=== PATIENT | female | born 1995 | race Caucasian/White ===

== ENCOUNTER 2019-10-06 22:42 | Emergency (ER) | payer SELFPAY ==
--- NOTE | 2019-10-06 22:55 | ER Document Report ---
ED General - General Mode of Arrival: Medic Information source: Patient, Emergency Med Personnel TRAVEL OUTSIDE OF THE [place] IN LAST 30 DAYS: No - HPI Onset: Just prior to arrival Onset/Duration: Sudden Severity: None Pain Level: Denies Associated symptoms: None <CORETTA STEEL JR - Last Filed: 10/07/19 03:55> <CARMEN AVINA - Last Filed: 10/07/19 09:48> <ANDREI GARRETT - Last Filed: 10/08/19 07:33> - General Stated Complaint: POSS OVERDOSE Time Seen by Provider: 10/06/19 22:47 Primary Care Provider: [facility] [Provider Group] - Follow up as needed Notes: 24-year-old female arrives by EMS after she took 8 of her dogs trazodone and drank wine prior to the this ingestion. Patient was evasive as to why she took the medications but reports she has various reasons which include job financial and social problems. 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 Patient is sleepy at this time upon arrival but arousable by calling her name. She denies any homicidal ideation and reports she regretted taking the medications as soon as she had done so and instead of driving herself to the ER she called EMS. (CORETTA STEEL JR) - Related Data Allergies/Adverse Reactions: No Known Allergies Allergy (Unverified 10/07/19 00:05) Past Medical History - General Information source: Patient, Emergency Med Personnel - Social History Frequency of alcohol use: Occasional - Patient drank wine prior to overdose; she reports she works at the [employer] as a sales & service associate. Drug Abuse: None Lives with: Other - "Her pit bull mix dog that takes trazodone for anxiety." <CORETTA STEEL JR - Last Filed: 10/07/19 03:55> - Social History Smoking Status: Unknown if Ever Smoked Family History: Reviewed & Not Pertinent <GERRYANDREI - Last Filed: 10/08/19 07:33> Review of Systems - Review of Systems Constitutional: No symptoms reported EENT: No symptoms reported Cardiovascular: No symptoms reported Respiratory: No symptoms reported Gastrointestinal: No symptoms reported Genitourinary: No symptoms reported Female Genitourinary: No symptoms reported Musculoskeletal: No symptoms reported Skin: No symptoms reported Hematologic/Lymphatic: No symptoms reported Neurological/Psychological: See HPI, Suicidal ideation - Patient reports she took that medication because at the spur the moment she thought this would help her. When asked whether she had suicidal ideation she reports her thoughts have changed immediately after taking the pills. She denies any homicidal ideation. <CORETTA STEEL JR - Last Filed: 10/07/19 03:55> Physical Exam - Vital signs Interpretation: Normal - General General appearance: Other - Sleepy but easily awakened by calling her name. I advised patient if she was being placed on papers and she requested what that meant and I advised that she will be staying here tonight and evaluated tomorrow morning by psychiatric. She shook her head no and I advised her that if she tries to leave he will be dissuaded by police and security. She appeared to understand this. - HEENT Head: Normocephalic Eyes: Normal Conjunctiva: Normal Cornea: Normal Extraocular movements intact: Yes Eyelashes: Normal Pupils: PERRL Mucous membranes: Normal Pharynx: Normal Neck: Normal - Respiratory Respiratory status: No respiratory distress Chest status: Nontender Breath sounds: Normal Chest palpation: Normal - Cardiovascular Rhythm: Regular Heart sounds: Normal auscultation Murmur: No Friction rub: No Sadi's crunch: No - Abdominal Inspection: Normal Distension: No distension Bowel sounds: Normal Tenderness: Nontender Organomegaly: No organomegaly - Back Back: Normal - Extremities General upper extremity: Normal inspection General lower extremity: Normal inspection - Neurological Neuro grossly intact: Yes Cognition: Normal Orientation: AAOx4 [place] Coma Scale Eye Opening: To Voice [place] Coma Scale Verbal: Oriented Daphnie Coma Scale Motor: Obeys Commands [place] Coma Scale Total: 14 Speech: Normal Cranial nerves: Normal Cerebellar coordination: Normal Motor strength normal: LUE, RUE, LLE, RLE - Psychological Associated symptoms: Anxious, Depressed - Skin Skin Temperature: Warm Skin Moisture: Dry <CORETTA STEEL JR - Last Filed: 10/07/19 03:55> - Vital signs Vitals: Resp BP Pulse Ox 20 123/68 97 10/06/19 22:44 10/06/19 22:44 10/06/19 22:44 Course - Laboratory Result Diagrams: 10/06/19 22:50 10/07/19 01:50 <CORETTA STEEL JR - Last Filed: 10/07/19 03:55> - Laboratory Result Diagrams: 10/06/19 22:50 10/07/19 01:50 <CARMEN AVINA - Last Filed: 10/07/19 09:48> - Laboratory Result Diagrams: 10/06/19 22:50 10/07/19 01:50 <ANDREI GARRETT - Last Filed: 10/08/19 07:33> - Vital Signs Vital signs: Temp Pulse Resp BP Pulse Ox 98.2 F 81 16 131/77 H 99 10/07/19 12:11 10/07/19 12:11 10/07/19 12:11 10/07/19 12:11 10/07/19 12:11 - Laboratory Laboratory results interpreted by me: 10/06/19 10/07/19 10/07/19 22:50 01:50 01:50 Glucose 122 H Urine Blood MODERATE H Salicylates < 1.0 L Acetaminophen < 10 L < 10 L Critical Care Note - Critical Care Note Total time excluding time spent on procedures (mins): 90 <MILVIACORETTA Augustin - Last Filed: 10/07/19 03:55> - Critical Care Note Comments: 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 and obtaining Tylenol level and BMP in 4 hours postingestion (MILVIACORETTA Demetria PORRAS) Discharge <CORETTA STEEL JR - Last Filed: 10/07/19 03:55> <CARMEN AVINA - Last Filed: 10/07/19 09:48> <ANDREI GARRETT - Last Filed: 10/08/19 07:33> - Discharge Clinical Impression: Overdose Qualifiers: Encounter type: initial encounter Injury intent: intentional self-harm Qualified Code(s): T50.902A - Poisoning by unspecified drugs, medicaments and biological substances, intentional self-harm, initial encounter Depression Qualifiers: Depression Type: unspecified Qualified Code(s): F32.9 - Major depressive disorder, single episode, unspecified Condition: Stable Disposition: HOME, SELF-CARE Additional Instructions: You have been evaluated by both medical and behavioral health teams for suicide ideation and have been deemed appropriate for discharge. While in the emergency department you received the following services: Medical screening and assessment, nursing services, dietary services, pharmacological services, one-on-one counseling and/or psychotherapy, environmental services, and continuous observation by a patient director food safety. You are being linked with [facility] mobile crisis to assist with transition at discharge and follow up services after discharge. You have also been provided with an outpatient mental health resource list. You are highly encouraged to follow up with a mental health provider more mental health services. SUICIDAL IDEATION: Suicidal ideation is a common medical term for thoughts about suicide, which may be as detailed as a formulated plan, without the suicidal act itself. Although most people who undergo suicidal ideation do not commit suicide, some go on to make suicide attempts. The range of suicidal ideation varies greatly from fleeting to detailed planning, role playing, and unsuccessful attempts. While thoughts about suicide are common, most people do not carry out serious actions to commit suicide. Based upon your evaluation and discussion with you, we do not believe you are currently at risk to act upon your thoughts of suicide. You have agreed to return to the Emergency Department, at any time, if you feel inclined to act upon your suicidal thoughts. AT ANY TIME, IF YOUR SYMPTOMS CHANGE SIGNIFICANTLY OR WORSEN OR YOU DEVELOP NEW SYMPTOMS, RETURN TO THE EMERGENCY DEPARTMENT IMMEDIATELY FOR RE-EVALUATION. Referrals: [facility] [Provider Group] - Follow up as needed
[2019-10-06 23:02] LABS: ABSOLUTE BASOPHILS # (AUTO) 0.1 10^3/uL (0.0-0.2); ABSOLUTE EOSINOPHILS # (AUTO) 0.2 10^3/uL (0.0-0.6); ABSOLUTE LYMPHOCYTES (AUTO) 2.3 10^3/uL (0.5-4.7); ABSOLUTE MONOCYTES (AUTO) 0.7 10^3/uL (0.1-1.4); ABSOLUTE NEUT (AUTO) 4.9 10^3/uL (1.7-8.2); BASOPHILS % (AUTO) 0.8 % (0-2); HEMATOCRIT 43.1 % (36.0-47.0); HEMOGLOBIN 14.6 g/dL (12.0-15.5); LYMPHOCYTES % (AUTO) 28.2 % (13-45); MEAN CORPUSCULAR HEMOGLOBIN 30.1 pg (27.0-33.4); MEAN CORPUSCULAR VOLUME 89 fl (80-97); MONOCYTES % (AUTO) 8.7 % (3-13); PLATELET COUNT 294 10^3/uL (150-450); RED BLOOD COUNT 4.85 10^6/uL (3.72-5.28); RED CELL DISTRIBUTION WIDTH 12.9 % (11.5-14.0); SEGMENTED NEUTROPHILS % (AUTO) 60.3 % (42-78); TOTAL CELLS COUNTED % (AUTO) 100 %; WHITE BLOOD COUNT 8.1 10^3/uL (4.0-10.5)
[2019-10-06] MEDS ORDERED: ACTIVATED CHARCOAL 25 GM BOTTLE PO STA (23:02)
[2019-10-06 23:19] LABS: ALBUMIN 4.5 g/dL (3.5-5.0); ALCOHOL 118 mg/dL (NONE DETECTED); ALKALINE PHOSPHATASE 83 U/L (38-126); ANION GAP 14 (5-19); ASPARTATE AMINO TRANSFERASE 27 U/L (14-36); BILIRUBIN,DIRECT 0.2 mg/dL (0.0-0.4); BILIRUBIN,TOTAL 0.5 mg/dL (0.2-1.3); BLOOD UREA NITROGEN 12 mg/dL (7-20); CALCIUM 9.1 mg/dL (8.4-10.2); CARBON DIOXIDE 24 mmol/L (22-30); CHLORIDE 105 mmol/L (98-107); GLUCOSE 122 mg/dL (75-110); POTASSIUM 3.9 mmol/L (3.6-5.0); TOTAL PROTEIN 7.8 g/dL (6.3-8.2)
[2019-10-06 23:21] LABS: ACETAMINOPHEN < 10 ug/mL (10-30); SALICYLATE < 1.0 mg/dL (2.0-20.0)
[2019-10-07 02:16] LABS: APPEARANCE,URINE CLEAR; BILIRUBIN,URINE NEGATIVE (NEGATIVE); COLOR,URINE YELLOW; GLUCOSE, URINE NEGATIVE (NEGATIVE); KETONES,URINE NEGATIVE (NEGATIVE); LEUKOCYTE ESTERASE,URINE NEGATIVE (NEGATIVE); NITRITE,URINE NEGATIVE (NEGATIVE); PROTEIN,URINE NEGATIVE (NEGATIVE); URINE SPECIFIC GRAVITY 1.015; UROBILINOGEN,URINE NEGATIVE mg/dL (<2.0)
[2019-10-07 02:33] LABS: ANION GAP 13 (5-19); BLOOD UREA NITROGEN 14 mg/dL (7-20); CALCIUM 9.1 mg/dL (8.4-10.2); CARBON DIOXIDE 24 mmol/L (22-30); CHLORIDE 105 mmol/L (98-107); GLUCOSE 93 mg/dL (75-110); POTASSIUM 4.5 mmol/L (3.6-5.0)
[2019-10-07 02:38] LABS: ACETAMINOPHEN < 10 ug/mL (10-30)
[2019-10-07 03:34] LABS: URINE AMPHETAMINES SCREEN NEGATIVE; URINE BARBITURATES SCREEN NEGATIVE; URINE BENZODIAZEPINES SCREEN NEGATIVE; URINE COCAINE SCREEN NEGATIVE; URINE METHADONE SCREEN NEGATIVE; URINE PHENCYCLIDINE SCREEN NEGATIVE
[2019-10-07 03:38] LABS: URINE MARIJUANA (THC) SCREEN UNCONFIRMED POSITIVE
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
--- NOTE | 2019-10-07 11:03 | ER Document Report ---
Doctor's Note Notes: 10/07/19 11:02 PHYSICAL EXAMINATION: GENERAL: Appears well, healthy, well-nourished, no acute distress. LUNGS: Equal breath sounds bilaterally and clear to auscultation. No wheezes rales or rhonchi. CARDIOVASCULAR: S1-S2, regular rate, regular rhythm. Radial pulses 2+, normal. ABDOMEN: Normoactive bowel sounds. Soft, nontender, no guarding, no rebound tenderness, and no masses palpated. PSYCH: Normal mood, normal affect. Patient denies any suicidal or homicidal ideation at this time. Patient has been cleared by mental health. No medication recommendations at this time. Patient will follow-up with [facility]. She is in agreement with this plan. Follow-up precautions were given. Verbal discharge instructions were given to the patient. They verbalized understanding. They are stable for discharge.
[2019-10-07 12:12] VITALS: BP 131/77
--- NOTE | 2019-10-07 15:53 | EKG REPORT ---
SEVERITY:- BORDERLINE ECG - SINUS ARRHYTHMIA, RATE 63-92 BORDERLINE T ABNORMALITIES, ANTERIOR LEADS : Confirmed by: Margarita Artis MD 07-Oct-2019 15:52:43
== END 2019-10-07 12:12 | disposition home or self-care (01) ==
LOC: ER 22:42
DX: T43.212A Poisoning by selective serotonin and norepinephrine reuptake inhibitors, intentional self-harm, initial encounter (principal); F32.9 Major depressive disorder, single episode, unspecified; Z59.8 Other problems related to housing and economic circumstances; Z63.0 Problems in relationship with spouse or partner; Z62.810 Personal history of physical and sexual abuse in childhood
CPT/HCPCS: 93005; 99291; 99292; 36415; 80307 ×4; 85025; 81025; 80048; 80053; 81001; 93010; J3490